=== PATIENT | male | born 1980 | race Caucasian/White ===

== ENCOUNTER 2020-01-27 13:12 | Emergency (ER) | payer OTHER ==
--- NOTE | 2020-01-27 13:15 | ERPHSYRPT ---
- History of Present Illness Time Seen by Provider: 01/27/20 13:14 Historian: patient, family Exam Limitations: no limitations Physician History: This is a 39-year-old white male who has a history of hypertension and no known cardiac disease and presents with localized left anterior chest pain that is described as sharp and stabbing. There is no radiation. He has never had anything quite like this before. Patient chews tobacco. Patient drinks alcohol daily. He does not have significant shortness of breath. He has no flulike symptoms. He has no myalgias or arthralgias. The pain began approximately 6:00 this morning. He did not take any aspirin. Timing/Duration: today Quality: sharpness Location: other (Localized to left anterior chest without radiation) Chest Pain Radiation: no radiation Severity of Pain-Max: moderate Severity of Pain-Current: moderate Modifying Factors: Improves With: nothing Associated Symptoms: denies symptoms Prior Chest Pain/Cardiac Workup: no prior chest pain Nitro Today/Relief: no nitro taken today Aspirin Treatment Today: no aspirin today Allergies/Adverse Reactions: No Known Drug Allergies Allergy (Verified 01/27/20 13:24) Home Medications: Amlodipine Besylate 5 mg PO DAILY 01/27/20 [History] Metoprolol Succinate 50 mg [Toprol Xl 50 MG] 50 mg PO DAILY 01/27/20 [History] Nortriptyline HCl 150 mg PO HS 01/27/20 [History] Zolpidem Tartrate 10 mg PO DAILY 01/27/20 [History] Travel Risk - International Travel Have you traveled outside of the country in past 3 weeks: No - Coronavirus Screening Are you exhibiting any of the following symptoms?: No Close contact with a COVID-19 positive Pt in past 14-21 Days: No - Review of Systems Constitutional: No Symptoms Eyes: No Symptoms Ears, Nose, & Throat: No Symptoms Respiratory: No Symptoms Cardiac: Chest Pain Abdominal/Gastrointestinal: No Symptoms Genitourinary Symptoms: No Symptoms Musculoskeletal: No Symptoms Skin: No Symptoms Neurological: No Symptoms Psychological: No Symptoms Endocrine: No Symptoms Hematologic/Lymphatic: No Symptoms Immunological/Allergic: No Symptoms All Other Systems: Reviewed and Negative - Past Medical History Pertinent Past Medical History: Yes Neurological History: No Pertinent History ENT History: No Pertinent History Cardiac History: Hypertension Respiratory History: No Pertinent History Endocrine Medical History: No Pertinent History Musculoskeletal History: No Pertinent History GI Medical History: No Pertinent History History: No Pertinent History Psycho-Social History: No Pertinent History Male Reproductive Disorders: No Pertinent History - Past Surgical History Past Surgical History: Yes - Nursing Vital Signs Nursing Vital Signs: Initial Vital Signs Temperature 98.1 F 01/27/20 13:13 Pulse Rate 105 H 01/27/20 13:13 Respiratory Rate 24 01/27/20 13:13 Blood Pressure 164/104 01/27/20 13:13 O2 Sat by Pulse Oximetry 97 01/27/20 13:13 Pain Scale Pain Intensity 0 - Physical Exam General Appearance: no apparent distress, alert, anxiety Eye Exam: PERRL/EOMI, eyes nml inspection Ears, Nose, Throat Exam: normal ENT inspection, moist mucous membranes Neck Exam: normal inspection, non-tender, supple, full range of motion Respiratory Exam: normal breath sounds, lungs clear, airway intact, No chest tenderness, No respiratory distress Cardiovascular Exam: regular rate/rhythm, normal heart sounds, normal peripheral pulses Gastrointestinal/Abdomen Exam: soft, normal bowel sounds, No tenderness Rectal Exam: not done Back Exam: normal inspection, normal range of motion, No CVA tenderness, No vertebral tenderness Extremity Exam: normal inspection Neurologic Exam: alert, oriented x 3, cooperative, information systems operator II-XII nml as tested, normal mood/affect, nml cerebellar function, nml station & gait, sensation nml Skin Exam: normal color, warm, dry Lymphatic Exam: No adenopathy SpO2 Interpretation: normal O2 Delivery: Room Air - Course Nursing assessment & vital signs reviewed: Yes EKG Interpreted by Me: RATE (101), Sinus Rhythm, Sinus Tach, NORMAL AXIS, NORMAL INTERVALS, NORMAL QRS, Other (No acute ischemic changes. There are no comparison EKGs available.) Ordered Tests: Active Orders 24 hr Category Date Time Status Audio Technician STAT Care 01/27/20 13:22 Active EKG-ER Only STAT Care 01/27/20 13:22 Active IV Insertion STAT Care 01/27/20 13:22 Active Pulse Oximetry (ED) STAT Care 01/27/20 13:22 Active CHEST 1 VIEW (PORTABLE) Stat Exams 01/27/20 13:22 Completed CBC W DIFF Stat Lab 01/27/20 13:56 Completed CMP Stat Lab 01/27/20 13:56 Completed D-DIMER QUANTITATIVE Stat Lab 01/27/20 13:56 Completed ETHYL ALCOHOL Stat Lab 01/27/20 13:56 Completed NT PRO BNP Stat Lab 01/27/20 13:56 Completed PROTIME WITH INR Stat Lab 01/27/20 13:56 Completed TROPONIN Q3H Lab 01/27/20 13:56 Completed TROPONIN Q3H Lab 01/27/20 16:30 Ordered TROPONIN Q3H Lab 01/27/20 19:30 Ordered TROPONIN Q3H Lab 01/27/20 22:30 Ordered TROPONIN Q3H Lab 01/28/20 01:30 Ordered Urine Triage Profile Stat Lab 01/27/20 14:32 Completed Medication Summary Discontinued Medications Generic Name Dose Route Start Last Admin Trade Name Freq PRN Reason Stop Dose Admin Aspirin 324 mg 01/27/20 13:22 01/27/20 13:32 Baby Aspirin 81 Mg Chew PO 01/27/20 13:23 324 mg STAT ONE Administration Aspirin Confirm 01/27/20 13:31 Baby Aspirin 81 Mg Chew Administered 01/27/20 13:32 Dose 324 mg .ROUTE .STK-MED ONE Morphine Sulfate 2 mg 01/27/20 13:22 01/27/20 13:32 Morphine Sulfate 2 Mg Inj IV 01/27/20 13:23 2 mg STAT ONE Administration Morphine Sulfate Confirm 01/27/20 13:29 Morphine Sulfate 2 Mg Inj Administered 01/27/20 13:30 Dose 2 mg .ROUTE .STK-MED ONE Nitroglycerin 0.4 mg 01/27/20 13:22 01/27/20 13:32 Nitrostat 0.4 Mg (Ed) SL 01/27/20 13:23 0.4 mg STAT ONE Administration Nitroglycerin Confirm 01/27/20 13:29 Nitrostat 0.4 Mg (Ed) Administered 01/27/20 13:30 Dose 0.4 mg SL .STK-MED ONE Ondansetron HCl 4 mg 01/27/20 13:22 01/27/20 13:31 Zofran 4 Mg/2 Ml Vial IV 01/27/20 13:23 4 mg STAT ONE Administration Ondansetron HCl Confirm 01/27/20 13:29 Zofran 4 Mg/2 Ml Vial Administered 01/27/20 13:30 Dose 4 mg .ROUTE .STK-MED ONE Lab/Rad Data: Laboratory Result Diagrams 01/27/20 13:56 01/27/20 13:56 Laboratory Results 01/27/20 01/27/20 01/27/20 Range/Units 14:32 13:56 13:56 WBC (4.0-10.5) K/mm3 RBC (4.1-5.6) M/mm3 Hgb (12.5-18.0) gm/dl Hct (42-50) % MCV (78-100) fl MCH (26-32) pg MCHC (32-36) g/dl RDW (11.5-14.0) % Plt Count (150-450) K/mm3 MPV (7.5-11.0) fl Gran % (36.0-66.0) % Eos # (Auto) (0-0.5) Absolute Lymphs (auto) (1.0-4.6) Absolute Monos (auto) (0.0-1.3) Lymphocytes % (24.0-44.0) % Monocytes % (0.0-12.0) % Eosinophils % (0.00-5.0) % Basophils % (0.0-0.4) % Absolute Granulocytes (1.4-6.9) Basophils # (0-0.4) PT 11.6 (8.83-12.87) SECONDS INR 1.03 (0.8-3.0) D-Dimer 222 (215-500) ng/mL Sodium (137-145) mmol/L Potassium (3.5-5.1) mmol/L Chloride (98-107) mmol/L Carbon Dioxide (22-30) mmol/L Anion Gap (5-15) MEQ/L BUN (9-20) mg/dL Creatinine (0.66-1.25) mg/dL Estimated GFR ML/MIN Glucose (74-106) mg/dL Calcium (8.4-10.2) mg/dL Total Bilirubin (0.2-1.3) mg/dL AST (17-59) U/L ALT (0-50) U/L Alkaline Phosphatase (38-126) U/L Troponin I < 0.012 (0.000-0.034) ng/mL NT-Pro-B Natriuret Pep (0-450) pg/mL Serum Total Protein (6.3-8.2) g/dL Albumin (3.5-5.0) g/dL Urine Opiates Level POSITIVE (NEGATIVE) Ur Methadone NEGATIVE (NEGATIVE) Urine Barbiturates NEGATIVE (NEGATIVE) Ur Phencyclidine (PCP) NEGATIVE (NEGATIVE) Urine Amphetamine NEGATIVE (NEGATIVE) U Benzodiazepine Level NEGATIVE (NEGATIVE) Urine Cocaine NEGATIVE (NEGATIVE) Urine Marijuana (THC) NEGATIVE (NEGATIVE) Ethyl Alcohol (0-10) mg/dL 01/27/20 01/27/20 Range/Units 13:56 13:56 WBC 8.2 (4.0-10.5) K/mm3 RBC 5.04 (4.1-5.6) M/mm3 Hgb 15.8 (12.5-18.0) gm/dl Hct 46.8 (42-50) % MCV 92.9 (78-100) fl MCH 31.3 (26-32) pg MCHC 33.8 (32-36) g/dl RDW 13.0 (11.5-14.0) % Plt Count 212 (150-450) K/mm3 MPV 9.8 (7.5-11.0) fl Gran % 66.5 H (36.0-66.0) % Eos # (Auto) 0.04 (0-0.5) Absolute Lymphs (auto) 1.93 (1.0-4.6) Absolute Monos (auto) 0.73 (0.0-1.3) Lymphocytes % 23.7 L (24.0-44.0) % Monocytes % 8.9 (0.0-12.0) % Eosinophils % 0.5 (0.00-5.0) % Basophils % 0.4 (0.0-0.4) % Absolute Granulocytes 5.43 (1.4-6.9) Basophils # 0.03 (0-0.4) PT (8.83-12.87) SECONDS INR (0.8-3.0) D-Dimer (215-500) ng/mL Sodium 139 (137-145) mmol/L Potassium 4.2 (3.5-5.1) mmol/L Chloride 104 (98-107) mmol/L Carbon Dioxide 27 (22-30) mmol/L Anion Gap 11.5 (5-15) MEQ/L BUN 18 (9-20) mg/dL Creatinine 0.92 (0.66-1.25) mg/dL Estimated GFR > 60.0 ML/MIN Glucose 127 H (74-106) mg/dL Calcium 9.2 (8.4-10.2) mg/dL Total Bilirubin 0.60 (0.2-1.3) mg/dL AST 33 (17-59) U/L ALT 45 (0-50) U/L Alkaline Phosphatase 60 (38-126) U/L Troponin I (0.000-0.034) ng/mL NT-Pro-B Natriuret Pep 24.7 (0-450) pg/mL Serum Total Protein 8.5 H (6.3-8.2) g/dL Albumin 4.6 (3.5-5.0) g/dL Urine Opiates Level (NEGATIVE) Ur Methadone (NEGATIVE) Urine Barbiturates (NEGATIVE) Ur Phencyclidine (PCP) (NEGATIVE) Urine Amphetamine (NEGATIVE) U Benzodiazepine Level (NEGATIVE) Urine Cocaine (NEGATIVE) Urine Marijuana (THC) (NEGATIVE) Ethyl Alcohol < 10 (0-10) mg/dL - Progress Progress: improved, re-examined Air Movement: good Progress Note: 01/27/20 14:58 Chest x-ray shows no acute cardiopulmonary process Blood Culture(s) Obtained: No Antibiotics given: No Counseled pt/family regarding: lab results, diagnosis, need for follow-up, rad results - Departure Departure Disposition: Home Clinical Impression: Non-cardiac chest pain, Hypertension Condition: Stable Critical Care Time: No Additional Instructions: Take your medication as prescribed. Follow-up with your primary care doctor for further management.
[2020-01-27] MEDS ORDERED: MORPHINE SULFATE 2 MG INJ ONE (13:29)
[2020-01-27] MEDS ORDERED: Nitrostat 0.4 MG (ED) SL ONE (13:29)
[2020-01-27] MEDS ORDERED: Zofran 4 MG/2 ML VIAL ONE (13:29)
[2020-01-27] MEDS: Zofran 4 MG/2 ML VIAL IV ONE (13:31)
[2020-01-27] MEDS ORDERED: BABY ASPIRIN 81 MG CHEW ONE (13:31)
[2020-01-27] MEDS: BABY ASPIRIN 81 MG CHEW PO ONE (13:32)
[2020-01-27] MEDS: Nitrostat 0.4 MG (ED) SL ONE (13:32)
[2020-01-27] MEDS: MORPHINE SULFATE 2 MG INJ IV ONE (13:32)
--- NOTE | 2020-01-27 13:44 | XRAY ---
Indication: Chest pain. Comparison: None Portable apical lordotic chest demonstrates normal heart, lungs, and bony thorax.
[2020-01-27 14:01] LABS: Absolute Neutrophil Ct (ANC) 5.43 (1.4-6.9); BASOPHIL % 0.4 % (0.0-0.4); Basophil (Absolute #) 0.03 (0-0.4); Eosinophil % 0.5 % (0.00-5.0); Eosinophil (Absolute #) 0.04 (0-0.5); Hematocrit 46.8 % (42-50); Hemoglobin 15.8 gm/dl (12.5-18.0); Lymphocyte (Absolute #) 1.93 (1.0-4.6); Lymphocytes % 23.7 % (24.0-44.0); Mean Cell Volume 92.9 fl (78-100); Mean Corpuscular Hemoglobin 31.3 pg (26-32); Mean Corpuscular Hgb Concent. 33.8 g/dl (32-36); Mean Platelet Volume 9.8 fl (7.5-11.0); Monocyte (Absolute #) 0.73 (0.0-1.3); Monocytes % 8.9 % (0.0-12.0); Neutrophil % 66.5 % (36.0-66.0); Platelet Count 212 K/mm3 (150-450); Red Blood Count 5.04 M/mm3 (4.1-5.6); White Blood Count 8.2 K/mm3 (4.0-10.5)
[2020-01-27 14:15] LABS: INR 1.03 (0.8-3.0); PROTIME 11.6 SECONDS (8.83-12.87)
[2020-01-27 14:20] LABS: ALBUMIN 4.6 g/dL (3.5-5.0); ALKALINE PHOSPHATASE 60 U/L (38-126); ANION GAP 11.5 MEQ/L (5-15); BLOOD UREA NITROGEN 18 mg/dL (9-20); CHLORIDE 104 mmol/L (98-107); Calcium 9.2 mg/dL (8.4-10.2); Carbon Dioxide 27 mmol/L (22-30); Creatinine 1 0.92 mg/dL (0.66-1.25); EST GLOMERULAR FILTRATION RATE > 60.0 ML/MIN; Glucose 127 mg/dL (74-106); NT PRO BNP 24.7 pg/mL (0-450); Potassium 4.2 mmol/L (3.5-5.1); SGOT/AST 33 U/L (17-59); SGPT/ALT 45 U/L (0-50); SODIUM 139 mmol/L (137-145); Total Protein 8.5 g/dL (6.3-8.2)
[2020-01-27 14:21] LABS: ETHYL ALCOHOL < 10 mg/dL (0-10)
[2020-01-27 14:50] LABS: Amphetamine,Urine NEGATIVE (NEGATIVE); Barbiturate,Urine NEGATIVE (NEGATIVE); Benzodiazepine,Urine NEGATIVE (NEGATIVE); Cocaine,Urine NEGATIVE (NEGATIVE); Methadone,Urine NEGATIVE (NEGATIVE); Opiate,Urine POSITIVE (NEGATIVE); PCP,Urine NEGATIVE (NEGATIVE); THC,Urine NEGATIVE (NEGATIVE)
[2020-01-27 15:06] VITALS: BP 109/77; PULSE 84; O2SAT 97
== END 2020-01-27 15:06 | disposition home or self-care (01) ==
LOC: ED 13:12
DX: R07.89 Other chest pain (principal); I10 Essential (primary) hypertension
CPT/HCPCS: 36000; 36415; 71045; 80053; 80307; 83880; 84484; 85025; 85379; 85610; 93005; 93041; 94760; 96374; 96375; 99284; J2270; J2405; A9270-GY; G0480

== ENCOUNTER 2023-03-25 17:15 | Emergency (ER) | payer OTHER ==
[2023-03-25 17:42] VITALS: PULSE 68; O2SAT 98
[2023-03-25] MEDS ORDERED: BACIGUENT PACKET TP ONE (17:43)
[2023-03-25] MEDS ORDERED: Adacel Vial IM ONE ×2 (17:44→18:05)
--- NOTE | 2023-03-25 17:47 | ERPHSYRPT ---
- History of Present Illness Time Seen by Provider: 03/25/23 17:44 Source: patient Exam Limitations: no limitations Patient Subjective Stated Complaint: C/O forehead injury that happened just prior to coming into the ER. Patient states he was working on a car and got hit with a pipe. Triage Nursing Assessment: Patient ambulated back to ER. He is alert and oriented. Coban wrapped around head. NO SOB. Dressing removed. An abrasion noted to forehead. Skin area is semi-circular; no active bleeding. Distal portion measures 1.2cm X 0.1cm. Bruising beginning around open area. Physician History: C/O forehead injury that happened just prior to coming into the ER. Patient states he was working on a car and got hit with a pipe. An abrasion noted to forehead. Skin area is semi-circular; no active bleeding. Distal portion measures 1.2cm X 0.1cm. Bruising beginning around open area. Occurred: just prior to arrival Severity: mild Head Injury Location: frontal Loss of Consciousness: no loss of consciousness Associated Symptoms: denies symptoms Allergies/Adverse Reactions: No Known Drug Allergies Allergy (Verified 03/25/23 17:20) Home Medications: Metoprolol Succinate 50 mg [Toprol Xl 50 MG] 50 mg PO DAILY 01/27/20 [History] Nortriptyline HCl 150 mg PO HS 01/27/20 [History] Zolpidem Tartrate 10 mg PO DAILY 01/27/20 [History] Clonidine HCl 0.1 mg [Clonidine 0.1 mg Tablet] 0.2 mg PO BID 03/25/23 [History] Cyclobenzaprine HCl 1 tab PO HS 03/25/23 [History] Lisinopril 20 mg [Zestril 20 MG] 1 tab PO DAILY 03/25/23 [History] Tirzepatide [Mounjaro] 5 mg SQ WEEKLY 03/25/23 [History] Hx Tetanus, Diphtheria Vaccination/Date Given: No (Not tetanus) Hx Influenza Vaccination/Date Given: Yes Immunizations Up to Date: Yes Travel Risk - International Travel Have you traveled outside of the country in past 3 weeks: No - Coronavirus Screening Are you exhibiting any of the following symptoms?: No Close contact with a COVID-19 positive Pt in past 14-21 Days: No - Vaccine Status Have you recieved a Covid-19 vaccination: No - Review of Systems Constitutional: No Fever, No Chills Eyes: No Symptoms Ears, Nose, & Throat: No Symptoms Respiratory: No Cough, No Dyspnea Cardiac: No Chest Pain, No Edema, No Syncope Abdominal/Gastrointestinal: No Abdominal Pain, No Nausea, No Vomiting, No Diarrhea Genitourinary Symptoms: No Dysuria Musculoskeletal: No Back Pain, No Neck Pain Skin: No Rash Neurological: No Dizziness, No Focal Weakness, No Sensory Changes Psychological: No Symptoms Endocrine: No Symptoms All Other Systems: Reviewed and Negative - Past Medical History Pertinent Past Medical History: Yes Neurological History: No Pertinent History ENT History: No Pertinent History Cardiac History: High Cholesterol, Hypertension Respiratory History: No Pertinent History Endocrine Medical History: Diabetes Type II Musculoskeletal History: No Pertinent History GI Medical History: No Pertinent History History: Renal Disease Psycho-Social History: No Pertinent History Male Reproductive Disorders: No Pertinent History - Past Surgical History Past Surgical History: Yes Male Surgical History: Vasectomy - Social History Smoking Status: Former smoker Exposure to second hand smoke: No Drug Use: none Patient Lives Alone: No - Nursing Vital Signs Nursing Vital Signs: Initial Vital Signs Pulse Rate 68 03/25/23 17:30 Blood Pressure 113/75 03/25/23 17:30 O2 Sat by Pulse Oximetry 98 03/25/23 17:30 Pain Scale Pain Intensity 7 - Radha Coma Score Best Eye Response (Radha): (4) open spontaneously Best Verbal Response (Radha): (5) oriented Best Motor Response ([place]): (6) obeys commands [place] Total: 15 - Physical Exam General Appearance: no apparent distress, alert Eye Exam: bilateral eye: PERRL, EOMI ENT Exam: airway nml Cardiovascular/Respiratory Exam: chest non-tender, normal breath sounds, regular rate/rhythm Gastrointestinal/Abdominal Exam: soft, non tender, no distention Back Exam: normal inspection, No vertebral tenderness Extremity Exam: non-tender, normal range of motion, normal inspection Mental Status Exam: alert, oriented x 3, cooperative Motor/Sensory Exam: no motor deficit, no sensory deficit, CN II-XII intact Skin Exam: normal color, warm, dry, No rash SpO2: 98 - Course Nursing assessment & vital signs reviewed: Yes - Progress Progress: improved Counseled pt/family regarding: diagnosis, need for follow-up Medical Desision Making - Independent Historian Additional History obtained from: Spouse - Risk of complications Minimal Risk: Minimal risk of morbidity - Departure Departure Disposition: Home Clinical Impression: Head injury Qualifiers: Encounter type: initial encounter Qualified Code(s): S09.90XA - Unspecified injury of head, initial encounter Abrasion head Qualifiers: Encounter type: initial encounter Qualified Code(s): S00.91XA - Abrasion of unspecified part of head, initial encounter Condition: Stable Critical Care Time: No Referrals: MAYUR MOULTON [Primary Care Provider] - Follow up/PCP as directed Instructions: Head Injury in Adults (DC), Concussion, Adult (DC) Additional Instructions: HEAD INJURY 1. A responsible person should observe the patient at home for 24 hours. 2. If any of the following signs or symptoms are observed or occur, call your family physician or return to the emergency department: A. Behavior change B. Persistent vomiting C. Unequal pupils D. Increasing drowsiness E. Difficulty in arousing the patient F. Severe headache G. Lump on head increasing in size Discharge/Care Plan SCHUYLER SIEGEL was seen on 03/25/23 in the Emergency Room. The patient was counseled regarding Diagnosis,Lab results, Imaging studies, need for follow up and when to return to the Emergency Room. Prescriptions given: Discharge Note I have spoken with the patient and/or caregivers. I have explained the patient's condition, diagnosis and treatment plan based on the information available to me at this time. I have answered the patient's and/or caregiver's questions and addressed any concerns. The patient and/or caregivers have as good understanding of the patient's diagnosis, condition and treatment plan as can be expected at this point. The vital signs have been stable. The patient's condition is stable and appropriate for discharge from the emergency department. The patient will pursue further outpatient evaluation with the primary care physician or other designated or consulting physician as outlined in the discharge instructions. The patient and/or caregivers are agreeable to this plan of care and follow-up instructions have been explained in detail. The patient and/or caregivers have received these instruction. The patient/and or caregivers are aware that any significant change in condition or worsening of symptoms should prompt an immediate return to this or the closest emergency department or call 911. SCHUYLER SIEGEL was seen on 03/25/23 n the Emergency Room. At that time you were treated for an emergent condition, during your visit Laboratory, Radiology and/or other procedures may have been ordered. It is very important that you follow-up with your Primary Care Physician MAYUR MOULTON within the next 24-48 hours to review your Emergency Room visit and the final results of testing that was ordered. Some test results such as Urine Cultures, Blood Cultures, and other cultures if ordered will not be finalized for 24-48 hours. If you do not have a Primary Care Provider please call the medical records department at [phone] ext [phone] to obtain a copy of your results or you may sign into our patient portal to obtain these results by visiting us @ [email or web address] and completing the following steps: 1. Click on the Patient Portal link 2. Click the Patient Self Enrollment Link to complete the enrollment form and entering your 3. Once the enrollment form is completed you will receive an email with a temporary ID and password at the email address you provided. 4. Next choose a user name and password. Your user name must be at least 4 characters long and your password must be at least 4 characters long. 5. Choose a security question from the list and provide your answer to the question. If you already have signed into the Health Portal you may access your Health Care Information 17/10 by the following steps: 1. Login to our website @ [email or web address] 2. Enter your original user name and password. FAQS The [facility] Health Portal is an online tool that contains your Lab Results, Radiology Reports, Visit History, Discharge Instructions and Health Summary Lab and Radiology Results will not be available for 72 hours on the portal. The Portal is a secure site, passwords are encryted and URLs are re-written so they cannot be copied and pasted. You and authorized family members are the only ones who can access your Portal. Also there is a timeout feature that protects your information if you leave the Portal page open. If you have technical difficulty please use the Contact Us link on the page this will allow you to submit any questions you have regarding the Portal or you may contact the Medical Record Department at [phone] ext [phone].
[2023-03-25] MEDS ORDERED: BACIGUENT PACKET ONE (18:05)
[2023-03-25 18:30] VITALS: BP 114/72
== END 2023-03-25 18:28 | disposition home or self-care (01) ==
LOC: ED 17:15
DX: S09.90XA Unspecified injury of head, initial encounter (principal); S00.81XA Abrasion of other part of head, initial encounter; W22.8XXA Striking against or struck by other objects, initial encounter; E78.5 Hyperlipidemia, unspecified; I10 Essential (primary) hypertension; E11.9 Type 2 diabetes mellitus without complications; Z79.85 Long-term (current) use of injectable non-insulin antidiabetic drugs; Z79.899 Other long term (current) drug therapy; Z28.310 Unvaccinated for COVID-19; Z23 Encounter for immunization
CPT/HCPCS: 90471; 90715; 99282; A9270-GY